=== PATIENT | male | born 1940 | race Caucasian/White ===

== ENCOUNTER → 2023-05-21 10:59 | Outpatient (REF) | payer MEDICARE, SELFPAY ==
[2023-05-21 13:05] LABS: % Basophils 0.5 % (0-2); % Eosinophils 2.3 % (0-6); % Immature Granulocytes 0.2 % (0-0.5); % Lymphocytes 16.8 % (20.5-51.1); % Monocytes 9.6 % (1.7-9.3); % Neutrophils 70.6 % (42.2-75.2); Absolute Eosinophils 0.1 10^3/uL (0-0.7); Absolute Monocytes 0.6 10^3/uL (0.1-0.6); Absolute Neutrophils 4.3 10^3/uL (1.4-6.5); Hematocrit 36.1 % (39.0-52.0); Hemoglobin 12.1 g/dL (13.0-18.0); Mean Corp Hgb Conc. 33.5 g/dL (33.0-37.0); Mean Corpuscular Hgb 31.7 pg (27.0-31.0); Mean Corpuscular Volume 94.5 fL (80.0-94.0); Mean Platelet Volume 10.6 fL (7.4-10.4); Nucleated Red Blood Cells % 0 % (-); Platelet Count 155 10^3/uL (130-400); Red Blood Cell Count 3.82 10^6/uL (4.70-6.10); Red Cell Dist. Width 13.2 % (11.5-14.5); White Blood Cell Count 6.1 10^3/uL (4.8-10.8)
[2023-05-21 13:47] LABS: ALT (SGPT) 21 U/L (0-50); AST (SGOT) 29 U/L (17-59); Albumin 3.5 g/dl (3.5-5.0); Alkaline Phosphatase 59 U/L (38-126); Blood Urea Nitrogen 18 mg/dl (9-20); Calcium 9.3 mg/dl (8.4-10.2); Carbon Dioxide 27 mmol/L (22-30); Chloride 103 mmol/L (98-107); Glucose 115 mg/dl (70-99); HDL Cholesterol 43 mg/dl; LDL Cholesterol, Calculated 35 mg/dl; Potassium 4.6 mmol/L (3.5-5.1); Sodium 138 mmol/L (135-145); Total Bilirubin 0.7 mg/dl (0.2-1.3); Total Cholesterol 94 mg/dl (50-199); Total Protein 6.3 g/dl (6.3-8.2); Triglyceride 82 mg/dl (10-149); Very Low Density Lipoprotein 16 mg/dl (0-30); eGFR 45.62
[2023-05-21 13:57] LABS: Protein/creatinine Ratio 0.3; Urine Protein 39 mg/dl
[2023-05-21 14:01] LABS: Microalbumin, Random Urine 7.6 mg/dl (0.6-1.7); Microalbumin/creatinine Ratio 54.8 mg/g
[2023-05-22 08:44] LABS: Glycohemoglobin (HgbA1c) 6.6 % (4.0-5.6)
[2023-05-22 09:15] LABS: Intact PTH 51.6 pg/ml (13.6-85.8)
== END ==
LOC: REG 10:59
PROVIDERS: ATTENDING PHYSICIAN Specialist; FAMILY PHYSICIAN Family Medicine
DX: I25.10 Atherosclerotic heart disease of native coronary artery without angina pectoris (principal); I48.92 Unspecified atrial flutter; I10 Essential (primary) hypertension; R41.81 Age-related cognitive decline; I97.89 Other postprocedural complications and disorders of the circulatory system, not elsewhere classified; N18.31 Chronic kidney disease, stage 3a; E11.69 Type 2 diabetes mellitus with other specified complication; E11.40 Type 2 diabetes mellitus with diabetic neuropathy, unspecified; E11.59 Type 2 diabetes mellitus with other circulatory complications; I50.32 Chronic diastolic (congestive) heart failure
CPT/HCPCS: 36415; 80053; 80061; 82043; 82570; 83036; 83970; 84156; 85025

== ENCOUNTER → 2023-06-07 13:35 | Outpatient (REF) | payer MEDICARE, SELFPAY ==
[2023-06-07 14:50] LABS: % Basophils 0.5 % (0-2); % Eosinophils 2.4 % (0-6); % Immature Granulocytes 0.3 % (0-0.5); % Lymphocytes 15.7 % (20.5-51.1); % Monocytes 9.3 % (1.7-9.3); % Neutrophils 71.8 % (42.2-75.2); Absolute Eosinophils 0.1 10^3/uL (0-0.7); Absolute Lymphocytes 0.9 10^3/uL (1.2-3.4); Absolute Monocytes 0.5 10^3/uL (0.1-0.6); Absolute Neutrophils 4.2 10^3/uL (1.4-6.5); Hematocrit 36.6 % (39.0-52.0); Hemoglobin 12.1 g/dL (13.0-18.0); Mean Corp Hgb Conc. 33.1 g/dL (33.0-37.0); Mean Corpuscular Hgb 31.3 pg (27.0-31.0); Mean Corpuscular Volume 94.6 fL (80.0-94.0); Mean Platelet Volume 10.1 fL (7.4-10.4); Nucleated Red Blood Cells % 0 % (-); Platelet Count 157 10^3/uL (130-400); Red Blood Cell Count 3.87 10^6/uL (4.70-6.10); Red Cell Dist. Width 13.2 % (11.5-14.5); White Blood Cell Count 5.8 10^3/uL (4.8-10.8)
[2023-06-07 15:19] LABS: Blood Urea Nitrogen 22 mg/dl (9-20); Calcium 9.4 mg/dl (8.4-10.2); Carbon Dioxide 27 mmol/L (22-30); Chloride 102 mmol/L (98-107); Glucose 141 mg/dl (70-99); Iron 93 ug/dl (49-181); Potassium 4.4 mmol/L (3.5-5.1); Sodium 136 mmol/L (135-145); eGFR 42.22
[2023-06-07 15:51] LABS: Ferritin 74.1 ng/ml (17.9-464.0)
[2023-06-07 16:05] LABS: Vitamin B12 535 pg/ml (239-931)
== END ==
LOC: REG 13:35
PROVIDERS: ATTENDING PHYSICIAN Family Medicine; FAMILY PHYSICIAN Specialist
DX: D64.9 Anemia, unspecified (principal); N18.31 Chronic kidney disease, stage 3a
CPT/HCPCS: 36415; 80048; 82607; 82728; 83540; 85025

== ENCOUNTER → 2023-09-15 07:35 | Outpatient (REF) | payer MEDICARE, SELFPAY | LOC: RAD 07:35 | PROVIDERS: ATTENDING PHYSICIAN Psychiatry & Neurology Neurology; FAMILY PHYSICIAN Family Medicine | DX: Z86.73 Personal history of transient ischemic attack (TIA), and cerebral infarction without residual deficits (principal) | CPT/HCPCS: 93880 ==

== ENCOUNTER → 2023-10-20 06:34 | Outpatient (REF) | payer MEDICARE, SELFPAY ==
[2023-10-20 08:41] LABS: ALT (SGPT) 27 U/L (0-50); AST (SGOT) 30 U/L (17-59); Albumin 3.9 g/dl (3.5-5.0); Alkaline Phosphatase 57 U/L (38-126); Blood Urea Nitrogen 24 mg/dl (9-20); Calcium 9.5 mg/dl (8.4-10.2); Carbon Dioxide 24 mmol/L (22-30); Chloride 106 mmol/L (98-107); Glucose 122 mg/dl (70-99); HDL Cholesterol 38 mg/dl; LDL Cholesterol, Calculated 30 mg/dl; Potassium 4.1 mmol/L (3.5-5.1); Sodium 137 mmol/L (135-145); Total Bilirubin 0.6 mg/dl (0.2-1.3); Total Cholesterol 88 mg/dl (50-199); Total Protein 6.4 g/dl (6.3-8.2); Triglyceride 104 mg/dl (10-149); Very Low Density Lipoprotein 20 mg/dl (0-30); eGFR 36.43
[2023-10-20 11:04] LABS: Glycohemoglobin (HgbA1c) 6.3 % (4.0-5.6)
== END ==
LOC: REG 06:34
PROVIDERS: ATTENDING PHYSICIAN Family Medicine
DX: I71.40 Abdominal aortic aneurysm, without rupture, unspecified (principal); I25.10 Atherosclerotic heart disease of native coronary artery without angina pectoris; I10 Essential (primary) hypertension; E78.5 Hyperlipidemia, unspecified; I48.92 Unspecified atrial flutter; Z79.01 Long term (current) use of anticoagulants; E11.69 Type 2 diabetes mellitus with other specified complication
CPT/HCPCS: 36415; 80053; 80061; 83036

== ENCOUNTER → 2023-10-20 13:20 | Outpatient (REF) | payer MEDICARE, SELFPAY | LOC: RAD 13:20 | PROVIDERS: ATTENDING PHYSICIAN Family Medicine | DX: R63.4 Abnormal weight loss (principal) | CPT/HCPCS: 71250; 74176 ==

== ENCOUNTER 2023-11-23 11:36 | Emergency (ER) | payer MEDICARE, SELFPAY ==
[2023-11-23 11:40] VITALS: BP 130/73
[2023-11-23 11:52] VITALS: BP 126/68
[2023-11-23 11:59] VITALS: BMI 28.5
[2023-11-23 12:14] VITALS: BP 111/90
--- NOTE | 2023-11-23 12:22 | ED.GENMED ---
History of Present Illness
General
Chief Complaint: Fall
Source: patient
Time Seen by Provider: 11/23/23 12:00
History of Present Illness
History of Present Illness:
83yoM with a history of coronary artery disease, atrial fibrillation on Eliquis, hypertension, and hyperlipidemia presenting for evaluation after a fall 4 hours ago. Patient was standing on a box looking over a fence this morning when he lost his
footing and fell backwards. He struck his head on concrete. He also injured his low back. Patient sustained an occipital hematoma during the incident. He denies any LOC. He denies any vomiting or visual disturbance. He takes Eliquis daily.
Past History
Past History
ED Past Medical History: CAD, HTN, Hypercholesterolemia and Other
ED Past Surgical History: Cardiac and Orthopedic
Social History
Tobacco: Former smoker
Alcohol: Former
Drug: Former user
Personal: Single
Living: alone
Family History
Family History: CAD
Phy Exam
General Physical Exam
General Presentation: well appearing and no apparent distress
General age: appears stated age
General Skin: warm and dry
General Habitus: normal
General Mental: alert
ENT Exam
ENT Exam: other (No cervical spine tenderness with full ROM)
Additional ENT: +Occipital hematoma present. No bleeding or open wounds.
Eye Exam
Eye Exam: PERRL
Cardiovascular Exam
Cardiovascular Exam: regular rate/rhythm and no edema
Pulmonary Exam
Pulmonary Exam: lungs clear, no respiratory distress, no crackles and no wheezing
Gastrointestinal Exam
Gastrointestinal Exam: non tender, soft and non distended
Neurological Exam
Neurological Exam: alert, no motor deficits and other (Ambulated independently into exam room. )
Jacinda Coma Scale
Eye Opening: Spontaneous
Verbal Response: Oriented
Motor Response: Obeys Commands
GCS Total Score: 15
Musculoskeletal Exam
Musculoskeletal Exam: other (No midline lumbar spinous process tenderness or step-offs. )
Skin Exam
Skin Exam: normal color and warm/dry
Psychiatric Exam
Psychiatric Exam: normal mood/affect and other (Abrasion noted to right lower back)
Course
Orders/Labs/Results
Orders:
Orders
11/23/23 11:39
CT Head W/o Iv Contrast Urgent
Comment:
Reason For Exam: fall on eliquis
11/23/23 12:22
Lumbar Spine Complete, 4 View [CR Lumbar Spine Comp Min 4 Vw*] Urgent
Comment:
Reason For Exam: Low back pain, fall
Vital Signs
Initial and Last Documented VS:
Initial Vital Signs
Temp Pulse Resp BP Pulse Ox
97.4 F 63 18 130/73 99
11/23/23 11:40 11/23/23 11:40 11/23/23 11:40 11/23/23 11:40 11/23/23 11:40
Last Documented Vital Signs
Temp Pulse Resp BP Pulse Ox
97.4 F 64 16 128/76 96
11/23/23 11:40 11/23/23 13:38 11/23/23 13:38 11/23/23 13:38 11/23/23 13:38
MDM/Problems Addressed
Differential Diagnosis Includes:
83yoM here after a mechanical fall. +Head strike, no LOC. Also having back pain. Takes Eliquis daily. He is awake, alert, with a GCS of 15. VSS. Occipital scalp hematoma on exam as well as an abrasion to the R lower back. No other injuries seen on
secondary survey. Cervical spine cleared via NEXUS criteria. Differential diagnosis includes but is not limited to: closed head injury, hematoma, skull fracture, intracranial hemorrhage
Initial ED plan: Check CT head and lumbar spine x-rays.
*Critical Care Note
Total Time (30-74mins, 75-104mins- exclusive of procedures): Not Applicable
Update Note
Update Note:
No traumatic injuries on imaging. Patient getting dressed on reassessment stating he is ready to go home. Supportive care discussed. Advised f/u with PCP and ED return precautions discussed. He was discharged in stable condition.
ED Attending Note
-
Portions of this chart may have been created with voice recognition software.� Occasional wrong word or��sound alike� substitutions may have occurred due to the inherent limitations of voice recognition software.
Discharge Plan
Departure
Patient Disposition: Home (Routine Discharge)
Date of Disposition: 11/23/23
Time of Disposition: 13:27
Patient with high blood pressure during this ER visit?: No
Discharge Problem:
Fall from slip, trip, or stumble, Scalp hematoma
Instructions: Head injury in adults
Prescriptions:
No Action
tamsulosin 0.4 MG capsule
0.4 mg PO QPM
finasteride 5 MG tablet
5 mg PO DAILY
losartan 50 MG tablet
100 mg PO DAILY
aspirin [Gela Low Dose Aspirin] 81 MG tablet,delayed release (DR/EC)
81 mg PO QPM
metoprolol succinate 25 MG tablet extended release 24 hr
50 mg PO DAILY
vitamin E 100 UNIT capsule
100 unit PO DAILY@1200
docosahexaenoic acid-epa 1 CAP capsule
1,000 mg PO BID
Vitamin D
1,000 units PO DAILY@1200
cyanocobalamin (vitamin B-12) 1,000 MCG tablet
1,000 mcg PO DAILY
furosemide 20 MG tablet
20 mg PO DAILY PRN (Reason: .water retention)
coenzyme [id number] [Co Q-10 (with Vit E)] 1 EACH capsule
1 ea PO DAILY
saw palmetto-zinc picolinate 1 EACH capsule
1 tab PO DAILY
atorvastatin 80 MG tablet
80 mg PO DAILY@1200
apixaban [Eliquis] 5 MG tablet
5 mg PO BID
diphenhydramine-acetaminophen [Tylenol PM Extra Strength] 1 EACH tablet
1 ea PO HS PRN (Reason: sleep)
Cbd
1 dropperett PO BID
cetirizine [All Day Allergy (cetirizine)] 10 MG capsule
10 mg PO DAILY PRN (Reason: allergy)
guaifenesin [Mucus Relief ER] 600 MG tablet extended release 12hr
600 mg PO Q12 PRN (Reason: post nasal gtt)
beta carotene 10,000 UNIT capsule
10,000 unit PO DAILY
acetaminophen 325 MG tablet
650 mg PO Q4HPRN PRN (Reason: mild pain or temp >/= 100.4 F) 0RF
metformin 750 MG tablet extended release 24 hr
1,500 mg PO DAILY Qty: 0 0RF
Rx Instructions:
DO NOT restart until 11/07/20
Referrals:
Ramiro Cool, [Family Provider] -
Activity Restrictions/Additional Instructions:
Apply ice to help with swelling. Take Tylenol as needed for pain.
Please follow-up with your family doctor. Return to the ER with any new or worsening symptoms.
Interventions
Interventions:
*Risk Screen - Suicide Last Done: 11/23/23 11:59
*General Assessment Last Done: 11/23/23 11:59
*Neglect/Abuse Screening Last Done: 11/23/23 11:59
ED- Fall Risk Assessment Last Done: 11/23/23 11:59
*ED COVID-19 Vaccine History Last Done: 11/23/23 11:59
*Nursing Disposition Last Done: 11/23/23 13:40
ED-Musculoskeletal Assessment Last Done: 11/23/23 11:59
ED- Neurological Assessment Last Done: 11/23/23 11:59
ED-Skin Assessment Last Done: 11/23/23 11:59
Discharge Date and Time
Discharge Date/Time: 11/23/23 13:41
Print Language: EMIRATI
[2023-11-23 13:38] VITALS: BP 128/76
== END 2023-11-23 13:41 | disposition home or self-care (01) ==
LOC: EMR 11:36
PROVIDERS: EMERGENCY PHYSICIAN Emergency Medicine; FAMILY PHYSICIAN Family Medicine
DX: S00.03XA Contusion of scalp, initial encounter (principal); W19.XXXA Unspecified fall, initial encounter; I25.10 Atherosclerotic heart disease of native coronary artery without angina pectoris; I48.91 Unspecified atrial fibrillation; I10 Essential (primary) hypertension; E78.00 Pure hypercholesterolemia, unspecified; Z79.01 Long term (current) use of anticoagulants; Z82.49 Family history of ischemic heart disease and other diseases of the circulatory system; Z87.891 Personal history of nicotine dependence
CPT/HCPCS: 99284; 70450; 72110

== ENCOUNTER 2023-11-25 09:10 | Outpatient (RCR) | payer MEDICARE, SELFPAY ==
[2023-11-25 09:35] VITALS: BP 132/76
[2023-11-25] MEDS: SODIUM BICARBONATE 1150 MEQ IV (09:42)
== END 2023-11-25 15:22 | disposition home or self-care (01) ==
LOC: OID 09:10
PROVIDERS: ATTENDING PHYSICIAN Surgery Vascular Surgery; PRIMARYCARE PHYSICIAN Family Medicine
DX: I71.40 Abdominal aortic aneurysm, without rupture, unspecified (principal); Z92.89 Personal history of other medical treatment
CPT/HCPCS: 96360; 96361

== ENCOUNTER → 2023-11-25 09:26 | Outpatient (REF) | payer MEDICARE, SELFPAY | LOC: RAD 09:26 | PROVIDERS: ATTENDING PHYSICIAN Surgery Vascular Surgery | DX: I71.40 Abdominal aortic aneurysm, without rupture, unspecified (principal) | CPT/HCPCS: 74174; Q9967 ==

== ENCOUNTER → 2024-01-07 10:55 | Outpatient (REF) | payer MEDICARE, SELFPAY ==
[2024-01-07 11:51] LABS: % Basophils 0.4 % (0-2); % Eosinophils 0.9 % (0-6); % Immature Granulocytes 0.4 % (0-0.5); % Lymphocytes 15.4 % (20.5-51.1); % Monocytes 8.9 % (1.7-9.3); Absolute Eosinophils 0.1 10^3/uL (0-0.7); Absolute Lymphocytes 0.8 10^3/uL (1.2-3.4); Absolute Monocytes 0.5 10^3/uL (0.1-0.6); Absolute Neutrophils 3.9 10^3/uL (1.4-6.5); Hemoglobin 11.2 g/dL (13.0-18.0); Mean Corp Hgb Conc. 32.9 g/dL (33.0-37.0); Mean Corpuscular Hgb 32.8 pg (27.0-31.0); Mean Corpuscular Volume 99.7 fL (80.0-94.0); Mean Platelet Volume 10.4 fL (7.4-10.4); Nucleated Red Blood Cells % 0 % (-); Platelet Count 153 10^3/uL (130-400); Red Blood Cell Count 3.41 10^6/uL (4.70-6.10); Red Cell Dist. Width 13.4 % (11.5-14.5); White Blood Cell Count 5.3 10^3/uL (4.8-10.8)
== END ==
LOC: REG 10:55
PROVIDERS: ATTENDING PHYSICIAN Nurse Practitioner Adult Health; FAMILY PHYSICIAN Family Medicine
DX: I97.89 Other postprocedural complications and disorders of the circulatory system, not elsewhere classified (principal)
CPT/HCPCS: 36415; 82565; 85025

== ENCOUNTER → 2024-01-17 08:27 | Outpatient (REF) | payer MEDICARE, SELFPAY | LOC: RAD 08:27 | PROVIDERS: ATTENDING PHYSICIAN Internal Medicine Gastroenterology; FAMILY PHYSICIAN Family Medicine | DX: R68.81 Early satiety (principal) | CPT/HCPCS: 78264; A9541 ==

== ENCOUNTER → 2024-05-15 11:11 | Outpatient (REF) | payer MEDICARE, SELFPAY ==
[2024-05-15 11:46] LABS: % Basophils 0.5 % (0-2); % Eosinophils 3.1 % (0-6); % Immature Granulocytes 0.2 % (0-0.5); % Lymphocytes 19.5 % (20.5-51.1); % Monocytes 10.6 % (1.7-9.3); % Neutrophils 66.1 % (42.2-75.2); Absolute Eosinophils 0.2 10^3/uL (0-0.7); Absolute Lymphocytes 1.1 10^3/uL (1.2-3.4); Absolute Monocytes 0.6 10^3/uL (0.1-0.6); Absolute Neutrophils 3.7 10^3/uL (1.4-6.5); Hematocrit 36.7 % (39.0-52.0); Hemoglobin 11.9 g/dL (13.0-18.0); Mean Corp Hgb Conc. 32.4 g/dL (33.0-37.0); Mean Corpuscular Volume 95.6 fL (80.0-94.0); Mean Platelet Volume 10.1 fL (7.4-10.4); Nucleated Red Blood Cells % 0 % (-); Platelet Count 158 10^3/uL (130-400); Red Blood Cell Count 3.84 10^6/uL (4.70-6.10); Red Cell Dist. Width 13.2 % (11.5-14.5); White Blood Cell Count 5.6 10^3/uL (4.8-10.8)
[2024-05-15 12:21] LABS: Glycohemoglobin (HgbA1c) 6.1 % (4.0-5.6)
[2024-05-15 12:24] LABS: Microalbumin, Random Urine 0.9 mg/dl (0.6-1.7); Microalbumin/creatinine Ratio 15.8 mg/g
[2024-05-15 12:40] LABS: HDL Cholesterol 42 mg/dl; LDL Cholesterol, Calculated 39 mg/dl; Total Cholesterol 102 mg/dl (50-199); Triglyceride 105 mg/dl (10-149); Very Low Density Lipoprotein 21 mg/dl (0-30)
== END ==
LOC: REG 11:11
PROVIDERS: ATTENDING PHYSICIAN Family Medicine
DX: E11.40 Type 2 diabetes mellitus with diabetic neuropathy, unspecified (principal); E11.51 Type 2 diabetes mellitus with diabetic peripheral angiopathy without gangrene; E11.59 Type 2 diabetes mellitus with other circulatory complications; E11.69 Type 2 diabetes mellitus with other specified complication; E78.5 Hyperlipidemia, unspecified; G62.9 Polyneuropathy, unspecified; I10 Essential (primary) hypertension; F10.21 Alcohol dependence, in remission; I25.10 Atherosclerotic heart disease of native coronary artery without angina pectoris; I35.1 Nonrheumatic aortic (valve) insufficiency; I48.92 Unspecified atrial flutter; I50.32 Chronic diastolic (congestive) heart failure; I65.23 Occlusion and stenosis of bilateral carotid arteries; I70.299 Other atherosclerosis of native arteries of extremities, unspecified extremity; I97.89 Other postprocedural complications and disorders of the circulatory system, not elsewhere classified; K21.9 Gastro-esophageal reflux disease without esophagitis; N18.32 Chronic kidney disease, stage 3b; Z23 Encounter for immunization; E66.09 Other obesity due to excess calories; Z68.30 Body mass index [BMI] 30.0-30.9, adult; E66.811 Obesity, class 1; Z71.3 Dietary counseling and surveillance
CPT/HCPCS: 36415; 80061; 82043; 82570; 83036; 85025

== ENCOUNTER → 2024-06-12 13:23 | Outpatient (REF) | payer MEDICARE, SELFPAY ==
[2024-06-12 14:28] LABS: Blood Urea Nitrogen 22 mg/dl (9-20); Calcium 9.9 mg/dl (8.4-10.2); Carbon Dioxide 28 mmol/L (22-30); Chloride 101 mmol/L (98-107); Glucose 128 mg/dl (70-99); Potassium 4.5 mmol/L (3.5-5.1); Sodium 136 mmol/L (135-145)
== END ==
LOC: REG 13:23
PROVIDERS: ATTENDING PHYSICIAN Surgery Vascular Surgery; FAMILY PHYSICIAN Family Medicine
DX: I71.40 Abdominal aortic aneurysm, without rupture, unspecified (principal)
CPT/HCPCS: 36415; 80048

== ENCOUNTER → 2024-06-22 13:59 | Outpatient (REF) | payer MEDICARE, SELFPAY | LOC: RAD 13:59 | PROVIDERS: ATTENDING PHYSICIAN Surgery Vascular Surgery; FAMILY PHYSICIAN Family Medicine | DX: I71.40 Abdominal aortic aneurysm, without rupture, unspecified (principal) | CPT/HCPCS: 74174; Q9967 ==

== ENCOUNTER → 2024-08-29 08:36 | Outpatient (REF) | payer MEDICARE, SELFPAY ==
[2024-08-29 10:18] LABS: % Basophils 0.7 % (0-2); % Eosinophils 2.2 % (0-6); % Immature Granulocytes 0.3 % (0-0.5); % Lymphocytes 14.2 % (20.5-51.1); % Monocytes 8.6 % (1.7-9.3); Absolute Eosinophils 0.1 10^3/uL (0-0.7); Absolute Lymphocytes 0.9 10^3/uL (1.2-3.4); Absolute Monocytes 0.5 10^3/uL (0.1-0.6); Absolute Neutrophils 4.5 10^3/uL (1.4-6.5); Hematocrit 37.6 % (39.0-52.0); Mean Corp Hgb Conc. 31.9 g/dL (33.0-37.0); Mean Corpuscular Hgb 31.3 pg (27.0-31.0); Mean Corpuscular Volume 97.9 fL (80.0-94.0); Mean Platelet Volume 10.9 fL (7.4-10.4); Nucleated Red Blood Cells % 0 % (-); Platelet Count 167 10^3/uL (130-400); Red Blood Cell Count 3.84 10^6/uL (4.70-6.10); Red Cell Dist. Width 13.8 % (11.5-14.5)
[2024-08-29 10:48] LABS: ALT (SGPT) 40 U/L (0-50); AST (SGOT) 40 U/L (17-59); Albumin 4.2 g/dl (3.5-5.0); Alkaline Phosphatase 60 U/L (38-126); Blood Urea Nitrogen 18 mg/dl (9-20); Calcium 9.4 mg/dl (8.4-10.2); Carbon Dioxide 26 mmol/L (22-30); Chloride 109 mmol/L (98-107); Glucose 127 mg/dl (70-99); HDL Cholesterol 42 mg/dl; LDL Cholesterol, Calculated 42 mg/dl; Potassium 4.3 mmol/L (3.5-5.1); Sodium 142 mmol/L (135-145); Total Bilirubin 0.6 mg/dl (0.2-1.3); Total Cholesterol 105 mg/dl (50-199); Total Protein 7.3 g/dl (6.3-8.2); Triglyceride 108 mg/dl (10-149); Very Low Density Lipoprotein 21 mg/dl (0-30); eGFR 45.06
[2024-08-29 11:01] LABS: Glycohemoglobin (HgbA1c) 6.4 % (4.0-5.6)
== END ==
LOC: REG 08:36
PROVIDERS: ATTENDING PHYSICIAN Family Medicine
DX: N18.32 Chronic kidney disease, stage 3b (principal); E11.69 Type 2 diabetes mellitus with other specified complication; E78.5 Hyperlipidemia, unspecified
CPT/HCPCS: 36415; 80053; 80061; 83036; 85025

== ENCOUNTER → 2024-10-19 12:56 | Outpatient (REF) | payer MEDICARE, SELFPAY | LOC: RCS 12:56 | PROVIDERS: ATTENDING PHYSICIAN Internal Medicine; FAMILY PHYSICIAN Family Medicine | DX: I25.10 Atherosclerotic heart disease of native coronary artery without angina pectoris (principal); I95.9 Hypotension, unspecified; I48.92 Unspecified atrial flutter; I10 Essential (primary) hypertension; I50.32 Chronic diastolic (congestive) heart failure | CPT/HCPCS: 93306 ==

== ENCOUNTER → 2024-12-29 09:17 | Outpatient (REF) | payer MEDICARE, SELFPAY ==
[2024-12-29 11:14] LABS: Blood Urea Nitrogen 34 mg/dl (9-20); Calcium 10.4 mg/dl (8.4-10.2); Carbon Dioxide 27 mmol/L (22-30); Chloride 106 mmol/L (98-107); Glucose 116 mg/dl (70-99); Potassium 4.6 mmol/L (3.5-5.1); Sodium 139 mmol/L (135-145); eGFR 41.70
== END ==
LOC: REG 09:17
PROVIDERS: ATTENDING PHYSICIAN Surgery Vascular Surgery; FAMILY PHYSICIAN Family Medicine
DX: I71.40 Abdominal aortic aneurysm, without rupture, unspecified (principal)
CPT/HCPCS: 36415; 80048

== ENCOUNTER → 2025-01-02 09:09 | Outpatient (REF) | payer MEDICARE, SELFPAY ==
[2025-01-02 10:56] LABS: Microalbumin, Random Urine 4.6 mg/dl (0.6-1.7)
[2025-01-02 10:57] LABS: ALT (SGPT) 32 U/L (0-50); AST (SGOT) 31 U/L (17-59); Albumin 4.1 g/dl (3.5-5.0); Alkaline Phosphatase 57 U/L (38-126); Blood Urea Nitrogen 21 mg/dl (9-20); Calcium 9.7 mg/dl (8.4-10.2); Carbon Dioxide 27 mmol/L (22-30); Chloride 105 mmol/L (98-107); Glucose 118 mg/dl (70-99); HDL Cholesterol 46 mg/dl; LDL Cholesterol, Calculated 32 mg/dl; Potassium 4.5 mmol/L (3.5-5.1); Sodium 139 mmol/L (135-145); Total Protein 7.3 g/dl (6.3-8.2); Very Low Density Lipoprotein 19 mg/dl (0-30); eGFR 45.06
[2025-01-02 11:13] LABS: Hematocrit 37.2 % (39.0-52.0); Hemoglobin 11.8 g/dL (13.0-18.0); Mean Corp Hgb Conc. 31.7 g/dL (33.0-37.0); Mean Corpuscular Volume 97.4 fL (80.0-94.0); Platelet Count 167 10^3/uL (130-400); Red Cell Dist. Width 13.2 % (11.5-14.5)
[2025-01-02 11:26] LABS: TSH 3.11 uIU/ml (0.47-4.68)
[2025-01-02 11:46] LABS: Glycohemoglobin (HgbA1c) 6.1 % (4.0-5.6)
== END ==
LOC: REG 09:09
PROVIDERS: ATTENDING PHYSICIAN Family Medicine
DX: Z00.00 Encounter for general adult medical examination without abnormal findings (principal); E11.69 Type 2 diabetes mellitus with other specified complication; I10 Essential (primary) hypertension; E78.5 Hyperlipidemia, unspecified
CPT/HCPCS: 36415; 80053; 80061; 82043; 83036; 84443; 85027

== ENCOUNTER 2025-01-15 07:27 | Outpatient (RCR) | payer MEDICARE, SELFPAY ==
[2025-01-15 07:50] VITALS: BP 145/74
[2025-01-15] MEDS: SODIUM BICARBONATE 1150 MEQ IV (08:03)
== END 2025-02-09 23:59 | disposition home or self-care (01) ==
LOC: OID 07:27
PROVIDERS: ATTENDING PHYSICIAN Surgery Vascular Surgery
DX: I71.40 Abdominal aortic aneurysm, without rupture, unspecified (principal)
CPT/HCPCS: 96365; 96366

== ENCOUNTER → 2025-01-15 08:03 | Outpatient (REF) | payer MEDICARE, SELFPAY | LOC: RAD 08:03 | PROVIDERS: ATTENDING PHYSICIAN Surgery Vascular Surgery | DX: I71.40 Abdominal aortic aneurysm, without rupture, unspecified (principal) | CPT/HCPCS: 74174; Q9967 ==